=== PATIENT | male | born 2000 | race African-American/Black ===

== ENCOUNTER 2021-05-04 21:22 | Emergency (ER) | payer OTHER ==
[2021-05-04] MEDS ORDERED: Sodium Chloride 0.9% 1,000 ML IV STA (21:39)
[2021-05-04] MEDS ORDERED: Ondansetron 4 MG/2 ML SDV IVPUSH ONE (21:39)
[2021-05-04] MEDS ORDERED: Sodium Chloride 0.9% 10 ML Syringe FLUSH PRN (21:39)
--- NOTE | 2021-05-04 21:52 | EDM.PDOC ---
ED HPI GENERAL MEDICAL PROBLEM - General Chief Complaint: Gastrointestinal Problem Stated Complaint: GETS HOT & COLD/VOMITING Time Seen by Provider: 05/04/21 21:35 Source of Information: Reports: Patient, RN Notes Reviewed History Limitations: Reports: No Limitations - History of Present Illness INITIAL COMMENTS - FREE TEXT/NARRATIVE: Patient is a 21-year-old male presenting to the emergency department with complaints of a 2-day history of fever, headache, as well as an episode of vomiting today. He reports T-max at home of 103. Today, he vomited after drinking fluid. He reports nasal congestion. He has been using Tylenol for fever and discomfort. Last dose was about 5 hours ago. He denies headache at this time. He has no abdominal pain or diarrhea. Denies cough but does report that he occasionally feels short of breath. He has no chronic medical conditions, does not take any medications, and has no allergies. Headache Pain Score (Numeric/FACES): 5 - Related Data Allergies Allergy/AdvReac Type Severity Reaction Status Date / Time No Known Allergies Allergy Verified 05/04/21 21:38 Home Meds: Home Meds . [No Known Home Meds] 05/04/21 [History] Past Medical History Neurological History: Reports: Seizure - Past Surgical History HEENT Surgical History: Reports: Tonsillectomy Social & Family History - Tobacco Use Tobacco Use Status *Q: Never Tobacco User - Caffeine Use Caffeine Use: Reports: None - Recreational Drug Use Recreational Drug Use: No ED ROS GENERAL - Review of Systems Review Of Systems: See Below Constitutional: Reports: Fever, Fatigue HEENT: Reports: No Symptoms Respiratory: Reports: Shortness of Breath (occasional). Denies: Wheezing, Cough Cardiovascular: Reports: No Symptoms Endocrine: Reports: No Symptoms GI/Abdominal: Reports: Nausea, Vomiting. Denies: Abdominal Pain, Diarrhea : Reports: No Symptoms Musculoskeletal: Reports: No Symptoms Skin: Reports: No Symptoms Neurological: Reports: No Symptoms Psychiatric: Reports: No Symptoms Hematologic/Lymphatic: Reports: No Symptoms Immunologic: Reports: No Symptoms ED EXAM, GI/ABD - Physical Exam Exam: See Below General Appearance: Alert, WD/WN, No Apparent Distress Eyes: Bilateral: Normal Appearance Throat/Mouth: Normal Inspection, Normal Lips, Normal Teeth, Normal Gums, Normal Oropharynx, Normal Voice, No Airway Compromise Head: Atraumatic, Normocephalic Neck: Normal Inspection, Supple, Non-Tender, Full Range of Motion Respiratory/Chest: No Respiratory Distress, Lungs Clear, Normal Breath Sounds, No Accessory Muscle Use, Chest Non-Tender Cardiovascular: Normal Peripheral Pulses, Regular Rate, Rhythm, No Edema, No Gallop, No JVD, No Murmur, No Rub GI/Abdominal Exam: Normal Bowel Sounds, Soft, Non-Tender, No Organomegaly, No Distention, No Abnormal Bruit, No Mass, Pelvis Stable Neurological: Alert, Oriented, CN II-XII Intact, Normal Cognition, Normal Gait, Normal Reflexes, No Motor/Sensory Deficits Psychiatric: Normal Affect, Normal Mood Skin Exam: Warm, Dry, Intact, Normal Color, No Rash Course - Vital Signs Last Recorded V/S: Last Vital Signs Temp 97.4 F 05/04/21 21:35 Pulse 91 05/04/21 21:35 Resp 16 05/04/21 21:35 BP 138/75 05/04/21 21:35 Pulse Ox 93 L 05/04/21 21:35 - Orders/Labs/Meds Orders: Active Orders 24 hr Category Date Time Status Peripheral IV Insertion Adult [OM.PC] Stat Oth 05/04/21 21:39 Ordered Labs: Laboratory Tests 05/04/21 05/04/21 05/04/21 Range/Units 21:46 21:46 21:46 WBC 10.20 H (4.23-9.07) K/mm3 RBC 5.92 (4.63-6.08) M/mm3 Hgb 13.4 L (13.7-17.5) gm/dl Hct 40.3 (40.1-51.0) % MCV 68.1 L (79.0-92.2) fl MCH 22.6 L (25.7-32.2) pg MCHC 33.3 (32.2-35.5) g/dl RDW Std Deviation 38.2 (35.1-43.9) fL Plt Count 179 (163-337) K/mm3 MPV 9.6 (9.4-12.3) fl Neut % (Auto) 72.4 H (34.0-67.9) % Lymph % (Auto) 10.5 L (21.8-53.1) % Power % (Auto) 16.6 H (5.3-12.2) % Eos % (Auto) 0 L (0.8-7.0) Baso % (Auto) 0.1 (0.1-1.2) % Neut # (Auto) 7.39 H (1.78-5.38) K/mm3 Lymph # (Auto) 1.07 L (1.32-3.57) K/mm3 Power # (Auto) 1.69 H (0.30-0.82) K/mm3 Eos # (Auto) 0.00 L (0.04-0.54) K/mm3 Baso # (Auto) 0.01 (0.01-0.08) K/mm3 Manual Slide Review Abnormal smear Sodium 137 (136-145) mEq/L Potassium 3.6 (3.5-5.1) mEq/L Chloride 98 (98-107) mEq/L Carbon Dioxide 28 (21-32) mEq/L Anion Gap 14.6 (5-15) BUN 10 (7-18) mg/dL Creatinine 1.2 (0.7-1.3) mg/dL Est Cr Clr Drug Dosing 123.75 mL/min Estimated GFR (MDRD) > 60 (>60) mL/min BUN/Creatinine Ratio 8.3 L (14-18) Glucose 109 H (70-99) mg/dL Calcium 9.0 (8.5-10.1) mg/dL Total Bilirubin 0.6 (0.2-1.0) mg/dL AST 22 (15-37) U/L ALT 35 (16-63) U/L Alkaline Phosphatase 79 (46-116) U/L Total Protein 8.0 (6.4-8.2) g/dl Albumin 3.5 (3.4-5.0) g/dl Globulin 4.5 gm/dL Albumin/Globulin Ratio 0.8 L (1-2) SARS-CoV-2 RNA (TORI) Negative (NEGATIVE) Meds: Medications Discontinued Medications Generic Name Dose Route Start Last Admin Trade Name Freq PRN Reason Stop Dose Admin Sodium Chloride 1,000 mls @ 999 mls/hr 05/04/21 21:39 05/04/21 21:59 Normal Saline IV 05/04/21 22:39 999 mls/hr NOW STA Administration Ondansetron HCl 4 mg 05/04/21 21:39 05/04/21 22:00 Ondansetron 4 Mg/2 Ml Sdv IVPUSH 05/04/21 21:40 4 mg ONETIME ONE Administration Sodium Chloride 10 ml 05/04/21 21:39 05/04/21 22:05 Sodium Chloride 0.9% 10 Ml Syringe FLUSH 10 ml ASDIRECTED PRN Administration Keep Vein Open - Re-Assessments/Exams Free Text/Narrative Re-Assessment/Exam: Patient is a 21 year old male presenting with c/o intermittent headache, fevers, and vomiting x 1. Exam is unremarkable. Lung sounds are clear. I have ordered blood work, chest xray, and a covid test. 05/04/21 22:37 Hematology is grossly unremarkable with exception of a WBC minimally elevated at 10.2. Chest x-ray shows no acute abnormalities. Covid is negative. Initial oxygen saturation patient was 93% upon arrival, however he is now saturating 97 to 100% on room air. Heart rate improved into the 90s with IV fluids. He is feeling much better. Discussed that he is likely suffering from viral illness. Recommend rest, fluids, Tylenol and ibuprofen. He states that he has actually been improving from when he initially developed symptoms 2 days ago. Discussed return precautions. Discharge instructions as documented. Departure - Departure Time of Disposition: 22:40 Disposition: Home, Self-Care 01 Condition: Good Clinical Impression: Viral illness - Discharge Information *PRESCRIPTION DRUG MONITORING PROGRAM REVIEWED*: No *COPY OF PRESCRIPTION DRUG MONITORING REPORT IN PATIENT LUIS: No Instructions: Viral Illness, Adult Referrals: PCP,None [Ordering Only Provider] - Forms: ED Department Discharge Additional Instructions: You were seen in the emergency department today for headache, fever, and an episode of vomiting this morning. Work-up included blood work, chest x-ray, and a Covid test. Results of your work-up were found to be normal. You are likely suffering from a viral illness. Recommend rest, increase fluid intake, and Tylenol and ibuprofen as needed for discomfort. If you are not improving over the course of the next few days, recommend follow-up in the clinic or return to ER for any new or worsening symptoms of concern.. Sepsis Event Note (ED) - Evaluation Sepsis Screening Result: No Definite Risk - My Orders Last 24 Hours: My Active Orders 05/04/21 21:39 Peripheral IV Insertion Adult [OM.PC] Stat - Assessment/Plan Last 24 Hours: My Active Orders 05/04/21 21:39 Peripheral IV Insertion Adult [OM.PC] Stat
--- NOTE | 2021-05-05 07:29 | CR ---
Chest: Portable view of the chest was obtained. Comparison: No prior chest imaging is available. Heart size and mediastinum are normal. Lungs are clear with no acute parenchymal change. Minimal scoliosis is noted within the spine. No acute osseous abnormality is seen. Impression: 1. Nothing acute is seen on portable chest x-ray. Diagnostic code #2
== END 2021-05-04 22:51 | disposition home or self-care (01) ==
LOC: JD.ED 21:22
DX: B34.9 Viral infection, unspecified (principal); Z20.822 Contact with and (suspected) exposure to COVID-19
CPT/HCPCS: 36415; 71045; 80053; 85025; 87635; 96374; 99284; J2405; J7030; U0002